=== PATIENT | male | born 1960 | race Caucasian/White ===

== ENCOUNTER 2019-08-23 09:20 | Outpatient (CLI) | payer MEDICARE ==
[~2019-08-23 09:20] MED LIST: AMLO1CAP23 PO; BENA20TA82 PO; INSU100I40 SQ; INSU100V9 SQ; METO-467 PO
[2019-08-23] MEDS ORDERED: LIDOcaine 2% 5ml jelly ONE (10:30)
[2019-08-23 13:15] LABS: BASOPHILS % (AUTO) 0.6 % (0-1); EOSINOPHILS # (AUTO) 0.1 X10'3 (0-0.9); EOSINOPHILS % (AUTO) 2.2 % (0-6); HEMATOCRIT 34.4 % (42.0-52.0); HEMOGLOBIN 10.9 g/dl (14.0-17.9); LYMPHOCYTES # (AUTO) 1.1 X10'3 (1.1-4.8); LYMPHOCYTES % (AUTO) 23.1 % (21-51); MEAN CORPUSCULAR HEMOGLOBIN 27.8 PG (27.0-31.0); MEAN CORPUSCULAR HGB CONC 31.8 g/dL (33.0-36.5); MEAN CORPUSCULAR VOLUME 87.5 FL (78-98); MEAN PLATELET VOLUME 8.5 FL (7.4-10.4); MONOCYTES # (AUTO) 0.5 X10'3 (0-0.9); MONOCYTES % (AUTO) 9.9 % (2-12); NEUTROPHILS % (AUTO) 64.2 % (42-75); PLATELET COUNT 210 X10'3 (140-440); RED BLOOD COUNT 3.93 X10'6 (4.70-6.10); RED CELL DISTRIBUTION WIDTH 17.3 % (11.5-14.5); WHITE BLOOD COUNT 4.7 X10'3 (4.5-11.0)
[2019-08-23 13:23] LABS: ALANINE AMINOTRANSFERASE 22 U/L (12-78); ALBUMIN 3.3 G/DL (3.4-5.0); ALBUMIN/GLOBULIN RATIO 0.8 (1.1-1.5); ALKALINE PHOSPHATASE 114 IU/L (46-116); ANION GAP 9 (8-16); ASPARTATE AMINO TRANSFERASE 22 U/L (10-37); BILIRUBIN,TOTAL 0.3 MG/DL (0.1-1.0); BLOOD UREA NITROGEN 13 MG/DL (7-18); BUN/CREATININE RATIO 11.8 (5.4-32.0); C-REACTIVE PROTEIN 0.34 MG/DL (0.0-0.5); CALCIUM 9.2 MG/DL (8.5-10.1); CHLORIDE 107 MMOL/L (99-107); GLUCOSE 81 MG/DL (70-104); POTASSIUM 3.7 MMOL/L (3.5-5.1); SODIUM 146 MMOL/L (135-145); TOTAL CARBON DIOXIDE 29.8 MMOL/L (24-32); TOTAL PROTEIN 7.7 G/DL (6.4-8.2); eGFR 68 ML/MIN
[2019-08-23 13:28] LABS: HEMOGLOBIN A1C 7.1 % (4.5-6.2)
[2019-09-02] MEDS ORDERED: CEFT500V5 IV (13:44)
[2019-09-02] MEDS ORDERED: METR500T PO (13:44)
[2019-09-02] MEDS ORDERED: VANCOMYCIN IV IV (13:44)
[2019-09-02] MEDS ORDERED: ASCO-100 PO (13:44)
[2019-09-02] MEDS ORDERED: LISI-600 PO (13:44)
[2019-09-02] MEDS ORDERED: APIX5TAB3 PO (13:44)
[2019-09-02] MEDS ORDERED: MAGN400O6 PO (13:44)
[2019-09-02] MEDS ORDERED: MUPI22OI30 TOP (13:44)
[2019-09-02] MEDS ORDERED: LORA-269 PO (13:44)
[2019-09-02] MEDS ORDERED: OMEP-50 PO (13:44)
[2019-09-02] MEDS ORDERED: MULT-1085 PO (13:44)
[2019-09-02] MEDS ORDERED: CLOP75TA33 PO (13:44)
[2019-09-02] MEDS ORDERED: BISA10SU60 RC (13:44)
[2019-09-02] MEDS ORDERED: HYDR-4383 PO (13:44)
[2019-09-02] MEDS ORDERED: MAG355OR18 PO (13:50)
[2019-09-02] MEDS ORDERED: DIPH25CA52 PO (13:50)
[2019-09-02] MEDS ORDERED: LACT1CAP26 PO (13:50)
[2019-09-02] MEDS ORDERED: MELA1TAB28 PO (13:50)
== END 2019-08-23 12:47 | disposition home or self-care (01) ==
LOC: WOUND CARE 09:20 → EDSTATUS 09:40 → WOUND CARE 12:47
PROVIDERS: ATTEND Nurse Practitioner
DX: E11.621 Type 2 diabetes mellitus with foot ulcer (principal); L97.512 Non-pressure chronic ulcer of other part of right foot with fat layer exposed; E11.622 Type 2 diabetes mellitus with other skin ulcer; L97.321 Non-pressure chronic ulcer of left ankle limited to breakdown of skin; E11.51 Type 2 diabetes mellitus with diabetic peripheral angiopathy without gangrene; E11.69 Type 2 diabetes mellitus with other specified complication; M86.8X7 Other osteomyelitis, ankle and foot; I10 Essential (primary) hypertension; K21.9 Gastro-esophageal reflux disease without esophagitis; M00.9 Pyogenic arthritis, unspecified; E66.9 Obesity, unspecified; E78.5 Hyperlipidemia, unspecified; I87.2 Venous insufficiency (chronic) (peripheral); I70.0 Atherosclerosis of aorta; Z68.30 Body mass index [BMI] 30.0-30.9, adult; Z79.899 Other long term (current) drug therapy; Z90.89 Acquired absence of other organs; Z79.4 Long term (current) use of insulin; Z87.891 Personal history of nicotine dependence
CPT/HCPCS: 36415; 36416; 73630; 80053; 82948; 83036; 85025; 85651; 86140; 97597